=== PATIENT | female | born 1980 | race Caucasian/White ===

== ENCOUNTER 2019-12-17 17:14 | Emergency (ER) | payer SELFPAY ==
[~2019-12-17] VITALS: Ht 162.6 cm; Wt 98.0 kg
--- OUTSIDE RECORDS SUMMARY | 2019-12-17 17:16 | XMS REPORT ---
Author Author [facility] Address Unknown Phone Unavailable Care Team Providers Care Match Up Worker Name Role Phone Donya WHEAT Unavailable Unavailable Problems This patient has no known problems. Allergies, Adverse Reactions, Alerts This patient has no known allergies or adverse reactions. Medications This patient has no known medications. Results Test Description Test Time Test Comments Text Results Atomic Results Result Comments HAND 2 VIEW RT [facility] 2019-10-30 00:05:00 [place] [address] Patient Name: ZAYRA BRITO MR #: [id number] : 1980 Age/Sex: 39/F Req #: [id number] Adm Physician: Ordered by: DIYA WHEAT MD Report #: [id number] Location: [facility] Room/Bed: Procedure: [id number] [facility]/HAND 2 VIEW RT - [facility] Exam Date: 10/29/19 Exam Time: 2350 REPORT STATUS: Signed Exam: Right Hand PA and lateral. History: Right h and pain between second and third metacarpal bones radiating to the elbow for 5 days Comparison: None. Findings: 2 views of the right hand. There is normal bone mineralization. Negative for acute, displaced fracture or dislocation. The joint spaces are preserved. No abnormal soft tissue calcification or mass. No cystic erosive changes.No soft tissue swelling. Impression: 1. No acute abnormalities. Signed by: Dr. Tete Varner M.D. on 10/30/2019 12:06 AM Dictated By: TETE VARNER MD Transcribed By: PITER on 10/30/195 COPY TO: DIYA WHEAT MD ELBOW 2VIEW RT - [facility] 2019-10-30 00:02:00 [place] [address] Patient Name: ZAYRA BRITO MR #: [id number] : 1980 Age/Sex: 39/F Req #: [id number] Adm Physician: Ordered by: DIYA WHEAT MD Report #: [id number] Location: [facility] Room/Bed: Procedure: [id number] HOPD/ELBOW 2VIEW RT - [facility] Exam Date: 10/29/19 Exam Time: 2350 REPORT STATUS: Signed Exam: Right elbow, 2 views History: Hand pain radiating to elbow for 5 days. History of prior injury to elbow one year ago Comparison: None. Findings: There is normal bone mineralization. No acute, displaced fracture or dislocation. Joint spaces are relatively well- preserved. 4 mm well-corticated calcific densities projecting in the soft tissues medial to the proximal ulna at the elbow joint are likely sequela of prior trauma or may represent phleboliths. No anterior or posterior fat pad elevation. No soft tissue defect. No soft tissue swelling. Impression: 1. No acute abnormalities. Signed by: Dr. Tete Varner M.D. on 10/30/2019 12:04 AM Dictated By: TETE VARNER MD 0004 Transcribed By: PITER on 10/30/19 0004 COPY TO: DIYA WHEAT MD
[2019-12-17] MEDS ORDERED: TRAMADOL HCL 50 MG TAB ONE (18:57)
[2019-12-17] MEDS ORDERED: KETOROLAC TROMETHAMINE 60 MG/2 ML VIAL IM ONE (19:00)
[2019-12-17] MEDS ORDERED: TRAMADOL HCL 50 MG TAB PO ONE (19:15)
[2019-12-17] MEDS ORDERED: KETOROLAC TROMETHAMINE 60 MG/2 ML VIAL ONE (19:25)
--- NOTE | 2019-12-17 19:47 | Diagnostic Imaging Report ---
FINGER RT - [facility] - Multiple views HISTORY: shut right hand in car door COMPARISON: None available. FINDINGS: Bones: No acute displaced fracture. Osseous alignment is within normal limits. Joints: The joint spaces are well-maintained. Soft tissues: The soft tissues appear unremarkable. IMPRESSION: No acute radiographic abnormality. Signed by: Nasir Singh MD on 12/17/2019 7:44 PM
[2019-12-17] MEDS ORDERED: TYLENOL WITH C1 EACH PO (20:10)
[2019-12-17] MEDS ORDERED: IBUPROFEN400 MG PO (20:12)
[2019-12-17] MEDS ORDERED: BACITRACIN ZINC 0.9GM TP ONE (20:29)
== END 2019-12-17 21:00 | disposition home or self-care (01) ==
LOC: FSED 17:14
DX: S60.031A Contusion of right middle finger without damage to nail, initial encounter (principal); W23.1XXA Caught, crushed, jammed, or pinched between stationary objects, initial encounter; Y92.008 Other place in unspecified non-institutional (private) residence as the place of occurrence of the external cause; F41.9 Anxiety disorder, unspecified; F17.210 Nicotine dependence, cigarettes, uncomplicated
CPT/HCPCS: 29130; 73140; 99283; J1885

== ENCOUNTER 2020-01-04 13:31 | Emergency (ER) | payer SELFPAY ==
[~2020-01-04] VITALS: Ht 162.6 cm; Wt 94.3 kg
[~2020-01-04 13:31] MED LIST: IBUPROFEN400 MG PO; TYLENOL WITH C1 EACH PO
[2020-01-04] MEDS ORDERED: KETOROLAC TROMETHAMINE 30 MG/ML VIAL IM NR (14:00)
--- NOTE | 2020-01-04 14:34 | Diagnostic Imaging Report ---
Exam: Right ankle radiographs-3 views Clinical History: Pain, swelling, trauma. Comparison: None. Findings/Impression: There are well-corticated bony fragments adjacent to the distal fibula, likely sequela of remote trauma. Suggest clinical correlation. No definite acute fracture. Ankle mortise is preserved. There is soft tissue edema in the ankle and hindfoot. Signed by: Dr. Audrey Lopez MD on 01/04/2020 2:30 PM
[2020-01-04] MEDS ORDERED: KETOROLAC TROMETHAMINE 30 MG/ML VIAL ONE (14:47)
--- NOTE | 2020-01-04 15:08 | NUR ---
PT REFUSED ORTHO BOOT, GIVEN CRUTCHES, PT STATES SHE WILL TAKE BOOT AND PUT IT ON WHEN SHE GETS HOME. DR ELAM NOTIFIED
== END 2020-01-04 15:30 | disposition home or self-care (01) ==
LOC: FSED 13:31
DX: S93.491A Sprain of other ligament of right ankle, initial encounter (principal); X50.1XXA Overexertion from prolonged static or awkward postures, initial encounter; Y92.008 Other place in unspecified non-institutional (private) residence as the place of occurrence of the external cause; F41.9 Anxiety disorder, unspecified
CPT/HCPCS: 73610; 99283; J1885

== ENCOUNTER 2020-04-06 18:08 | Emergency (ER) | payer SELFPAY ==
[~2020-04-06] VITALS: Ht 162.6 cm; Wt 93.4 kg
[2020-04-06 21:41] VITALS: BP 137/70
--- NOTE | 2020-04-07 02:42 | Emergency Department Note ---
History of Present Illnes History of Present Illness Chief Complaint: pimple on tip f right middle finger History of Present Illness This is a 39 year old female. was doing well prior to this. Historian: Patient Arrival Mode: Car History limited by: condition of the patient (normal) Stain Applicator Required: No Onset (how long ago): week(s) (1) Location: right middle finger Radiation: Reports non-radiation Severity: mild Onset quality: gradual Duration (how long): week(s) (1) Timing of current episode: constant Progression: unchanged Chronicity: new Context: Denies recent illness, Denies recent surgery, Denies recent immobilization, Denies recent travel, Denies trauma/injury, Denies new medications Relieving factors: none Exacerbating factors: none Associated symptoms: Reports denies other symptoms Treatments prior to arrival: none Past Medical/Family History Physician Review I have reviewed the patient's past medical and family history. Any updates have been documented here. Past Medical History Recent Fever: No Clinical Suspicion of Infectio: No New/Unexplained Change in Ment: No Past Medical History: None Other Medical History: ADHD, ANXIETY Past Surgical History: Tubal Ligation Social History Smoking Cessation: Current every day smoker Alcohol Use: None Any Illegal Drug Use: Yes (OCC WEED PER PT) TB Exposure/Symptoms: No Physically hurt or threatened: No Other Last Tetanus: UTD Any Pre-Existing Lines (PICC,: No Is patient up to date on immun: No Last Flu: NONE Last Pneumovax: NA Review of Systems Review of Systems Constitutional: Reports no symptoms EENTM: Reports no symptoms Cardiovascular: Reports no symptoms Respiratory: Reports no symptoms Gastrointestinal: Reports no symptoms Genitourinary: Reports no symptoms Musculoskeletal: Reports no symptoms Integumentary: Reports as per HPI Neurological: Reports no symptoms Psychological: Reports no symptoms Endocrine: Reports no symptoms Hematological/Lymphatic: Reports no symptoms Review of other systems: All other systems negative Physical Exam Related Data Allergies: Coded Allergies: Penicillins (Verified Allergy, Unknown, 10/29/19) Triage Vital Signs Vital Signs Date Time Temp Pulse Resp B/P (MAP) Pulse Ox O2 Delivery O2 Flow Rate FiO2 04/06/20 19:02 98.8 102 18 137/70 100 Vital signs reviewed: Yes Physical Exam CONSTITUTIONAL Constitutional: Present well-developed, Present well-nourished HENT HENT: Present normocephalic, Present atraumatic, Present oropharynx clear/moist, Present nose normal HENT L/R: Present left ext ear normal, Present right ext ear normal EYES Eyes: Reports PERRL, Reports conjunctivae normal NECK Neck: Present ROM normal, Present supple PULMONARY Pulmonary: Present effort normal, Present breath sounds normal CARDIOVASCULAR Cardiovascular: Present regular rhythm, Present heart sounds normal, Present capillary refill normal, Present normal rate GASTROINTESTINAL Abdominal: Present soft, Present nontender, Present bowel sounds normal GENITOURINARY Genitourinary: Present exam deferred SKIN Skin: Present warm, Present dry, Present other (+tiny pimple on tip of rgt middle finger.); Absent erythema MUSCULOSKELETAL Musculoskeletal: Present ROM normal NEUROLOGICAL Neurological: Present alert, Present oriented x 3, Present no gross motor or sensory deficits PSYCHOLOGICAL Psychological: Present mood/affect normal, Present judgement normal Assessment & Plan Medical Decision Making MDM f/u at [facility] call [phone] Assessment & Plan Final Impression: (1) Skin pimple Depart Disposition: HOME, SELF-CARE Last Vital Signs Date Time Temp Pulse Resp B/P (MAP) Pulse Ox O2 Delivery O2 Flow Rate FiO2 04/06/20 21:41 102 18 100 04/06/20 19:02 98.8 137/70 Home Meds Active Scripts Ibuprofen (IBUPROFEN) 400 Mg Tablet, 600 MG PO Q6H for pain, #30 TAB 0 Refills Prov:RUTH JUARES MD 12/17/19 Acetaminophen With Codeine (TYLENOL WITH CODEINE #3 TABLET) 1 Each Tablet, 1-2 TAB PO Q6H for painand inflammation, #20 TAB 0 Refills Do NOT take and drive or operate machinery. Prov:RUTH JUARES MD 12/17/19 PAULA THOMASON Apr 07, 2020 02:41
== END 2020-04-06 20:37 | disposition left against medical advice (07) ==
LOC: FSED 18:08
DX: R23.8 Other skin changes (principal)